=== PATIENT | male | born 1985 | race Caucasian/White ===

== ENCOUNTER 2017-12-26 19:57 | Emergency (ER) | payer OTHER ==
[~2017-12-26] VITALS: Ht 182.9 cm; Wt 95.2 kg
[~2017-12-26 19:57] MED LIST: IBUP800 PO; Naprosyn500 MG PO; Vistaril25 MG PO
== END 2017-12-26 20:51 | disposition home or self-care (01) ==
LOC: ER 19:57
DX: F10.129 Alcohol abuse with intoxication, unspecified (principal); F17.200 Nicotine dependence, unspecified, uncomplicated
CPT/HCPCS: 99285

== ENCOUNTER 2018-02-06 15:19 | Emergency (ER) | payer OTHER ==
[~2018-02-06] VITALS: Ht 182.9 cm; Wt 90.7 kg
[2018-02-06] MEDS ORDERED: CHLO25 PO (15:50)
== END 2018-02-06 16:16 | disposition home or self-care (01) ==
LOC: ER 15:19
DX: F10.10 Alcohol abuse, uncomplicated (principal); I10 Essential (primary) hypertension
CPT/HCPCS: 99284

== ENCOUNTER 2018-07-23 17:24 | Emergency (ER) | payer OTHER ==
[~2018-07-23] VITALS: Ht 182.9 cm; Wt 90.7 kg
[~2018-07-23 17:24] MED LIST changes: +CHLO25 PO
[2018-07-23] MEDS ORDERED: LIDO700A20 TOP (18:03)
[2018-07-23] MEDS ORDERED: TRAM50 PO (18:03)
[2018-07-23] MEDS ORDERED: IBUP800 PO (18:03)
== END 2018-07-23 18:07 | disposition home or self-care (01) ==
LOC: ER 17:24
DX: S46.912A Strain of unspecified muscle, fascia and tendon at shoulder and upper arm level, left arm, initial encounter (principal); X58.XXXA Exposure to other specified factors, initial encounter; F17.200 Nicotine dependence, unspecified, uncomplicated
CPT/HCPCS: 99283

== ENCOUNTER 2018-08-15 00:27 | Emergency (ER) | payer OTHER ==
[~2018-08-15] VITALS: Ht 182.9 cm; Wt 90.7 kg
[~2018-08-15 00:27] MED LIST changes: +LIDO700A20 TOP; +TRAM50 PO
[2018-08-15 03:06] LABS: Anion Gap 10 mmol/L (6-16); Blood Urea Nitrogen 13 mg/dL (8-24); Bun/Creatinine Ratio 15.5 (12.0-20.0); CO2, Blood 25 mmol/L (21-32); Calcium, Blood 8.7 mg/dL (8.5-10.1); Chloride, Blood 105 mmol/L (98-108); Creatinine, Blood 0.84 mg/dL (0.60-1.20); Glomerular Filtration Rate >60 (60-); Glucose, Blood 108 mg/dL (70-99); Potassium, Blood 3.8 mmol/L (3.5-5.5); Sodium, Blood 140 mmol/L (136-145)
[2018-08-15] MEDS ORDERED: AMOCLA400S PO (04:09)
[2018-08-16] MEDS ORDERED: Norco 5-325 Ta1 EACH PO (17:12)
[2018-08-16] MEDS ORDERED: AMOCLA400S PO (17:14)
== END 2018-08-15 04:54 | disposition home or self-care (01) ==
LOC: ER 00:27
PROVIDERS: Emergency Medicine
DX: J02.9 Acute pharyngitis, unspecified (principal); J36 Peritonsillar abscess; F17.210 Nicotine dependence, cigarettes, uncomplicated
CPT/HCPCS: 70491; 80048; 96365-59; 96375-59; 99284-25; A9270-GY; J0295; J1100; J1170; J2405; J7120; Q9967

== ENCOUNTER 2018-08-16 16:19 | Inpatient (IN) | payer OTHER ==
[~2018-08-16] VITALS: Ht 182.9 cm; Wt 89.7 kg
[~2018-08-16 16:19] MED LIST changes: +AMOCLA400S PO
[2018-08-16 17:00] LABS: BASOPHILS ABSOLUTE AUTO 0.02 K/mm3 (0.00-0.23); BASOPHILS PERCENT AUTO 0 % (0-2); EOSINOPHILS ABSOLUTE AUTO 0.03 K/mm3 (0.00-0.68); EOSINOPHILS PERCENT AUTO 0 % (0-6); Hematocrit 45.2 % (37.0-53.0); Hemoglobin 15.4 g/dL (13.5-17.5); IMMATURE GRAN ABSOLUTE AUTO 0.03 K/mm3 (0.00-0.10); IMMATURE GRAN PERCENT AUTO 0 % (0-1); LYMPHOCYTES ABSOLUTE AUTO 2.48 K/mm3 (0.84-5.20); LYMPHOCYTES PERCENT AUTO 19 % (21-46); MONOCYTES ABSOLUTE AUTO 0.78 K/mm3 (0.16-1.47); MONOCYTES PERCENT AUTO 6 % (4-13); Mean Corpuscular HGB 31.1 pg (26.0-34.0); Mean Corpuscular HGB Conc 34.1 g/dL (31.5-36.5); Mean Corpuscular Volume 91 fL (80-100); NEUTROPHILS ABSOLUTE AUTO 9.84 K/mm3 (1.96-9.15); NEUTROPHILS PERCENT AUTO 75 % (41-73); Platelet Count 305 K/mm3 (150-400); RDW Coefficient Variation 12.1 % (11.7-14.2); RDW Standard Deviation 40.6 fL (35.1-46.3); Red Blood Cell Count 4.95 M/mm3 (4.30-5.90); White Blood Cell Count 13.18 K/mm3 (4.00-11.30)
[2018-08-16] MEDS ORDERED: Norco 5-325 Ta1 EACH PO (17:12)
[2018-08-16] MEDS ORDERED: AMOCLA400S PO (17:14)
[2018-08-16 17:23] LABS: Alanine Aminotransfer (ALT/SGP 31 U/L (12-78); Albumin, Blood 4.2 g/dL (3.4-5.0); Albumin/Globulin Ratio 1.2 (0.8-1.8); Alk Phos 61 U/L (50-136); Anion Gap 5 mmol/L (6-16); Aspartate Aminotrans (AST/SGOT 17 U/L (12-37); Bilirubin, Total 0.8 mg/dL (0.1-1.0); Blood Urea Nitrogen 14 mg/dL (8-24); Bun/Creatinine Ratio 16.3 (12.0-20.0); CO2, Blood 29 mmol/L (21-32); Calcium, Blood 9.3 mg/dL (8.5-10.1); Chloride, Blood 104 mmol/L (98-108); Creatinine, Blood 0.86 mg/dL (0.60-1.20); Globulin, Blood 3.5 g/dL (2.2-4.0); Glomerular Filtration Rate >60 (60-); Glucose, Blood 97 mg/dL (70-99); Potassium, Blood 3.7 mmol/L (3.5-5.5); Sodium, Blood 138 mmol/L (136-145); Total Protein, Blood 7.7 g/dL (6.4-8.2)
--- NOTE | 2018-08-16 18:58 | NUR ---
INITIAL ADMIT NOTE PT ARRIVED TO ICU 1837 VIA STRETCHER, RECIEVED REPORT FROM CAMILLA IN ER. PT IS ALERT AND ORIENTED X 4, FOLLOWING COMMANDS, WITH MUFFLED SPEECH. PT IS IN NO RESPIRATORY DISTRESS AT THIS TIME, AND REPORTS NO TROUBLE WITH BREATHING. VITAL SIGNS NOTED, FREQUENT SPITTING OF CLEAR SECRETIONS THAT ARE "PAINFUL TO SWALLOW". PHARYNX IS RED AND SWOLLEN.
--- NOTE | 2018-08-16 19:42 | NUR ---
CALLED HOSPITALIST: TO VERIFY DECADRON IV ORDERS. NEW ORDERS TO DISCONTINUE ALL CURRENT DECADRON IV ORDERS AND REORDER DECADRON 10mg IVP Q12 HOURS NEXT DOSE TO BE TOMORROW AM.
--- NOTE | 2018-08-16 22:03 | NUR ---
START OF SHIFT: BEDSIDE REPORT FROM DENISE ALMAGUER AND KAMILA RN. PT VSS. APPEARED SOMEWHAT TIRED AT THE TIME. PT ASSESSMENT WITH PT C/O THROAT PAIN. PT GIVEN FENTANYL PER DR. SANDERS AND HAS JUST REPORTED SOME RELIEF FROM HIS THROAT PAIN AND IS NOW ACTUALLY ABLE TO SWALLOW A BIT. PT REPORT HIS THROAT PAIN DOWN TO 7/10. PT GIVEN SECOND DOSE OF FENTANYL. WILL CONTINUE TO MONITOR.
[2018-08-16 22:26] LABS: Adenovirus Not Detected (NOT DETECT); Bordetella pertussis Not Detected (NOT DETECT); Chlamydophila pneumoniae Not Detected (NOT DETECT); Coronavirus 229E Not Detected (NOT DETECT); Coronavirus HKU1 Not Detected (NOT DETECT); Coronavirus NL63 Not Detected (NOT DETECT); Coronavirus OC43 Not Detected (NOT DETECT); Human Metapneumovirus Not Detected (NOT DETECT); Human Rhinovirus/Enterovirus Not Detected (NOT DETECT); Influenza A Not Detected (NOT DETECT); Influenza A/2009-H1 Not Detected (NOT DETECT); Influenza A/H1 Not Detected (NOT DETECT); Influenza A/H3 Not Detected (NOT DETECT); Influenza B Not Detected (NOT DETECT); Mycoplasma pneumoniae Not Detected (NOT DETECT); Parainfluenza Virus 1 Not Detected (NOT DETECT); Parainfluenza Virus 2 Not Detected (NOT DETECT); Parainfluenza Virus 3 Not Detected (NOT DETECT); Parainfluenza Virus 4 Not Detected (NOT DETECT); Respiratory Syncytial Virus Not Detected (NOT DETECT)
--- NOTE | 2018-08-16 22:26 | NUR ---
HOSPITALIST NOTIFIED: PT STATED THAT HIS THROAT IS FEELING BETTER AND ABLE TO SWALLOW-REQUESTED TO HAVE SOMETHING COLD TO DRINK. HOSPITALIST GAVE NEW ORDER: TRY ICE WATER TO BEGIN WITH THEN IF TOLERATED AND NO ASPIRATION THEN START PT ON CLEAR LIQUID DIET.
--- NOTE | 2018-08-16 23:29 | NUR ---
PT TOLERATING ICE WATER WELL. REQUESTS APPLE JUICE. CHANGED DIET TO CLEAR LIQUIDS
--- NOTE | 2018-08-17 00:29 | NUR ---
PAIN: PT REPORTS NOW PAIN ONLY 1/10 WHEN NOT SWALLOWING. 6/10 WHEN SWALLOWING. PT REQUESTED AND GIVEN MORE APPLE JUICE.
[2018-08-17 03:57] LABS: BASOPHILS ABSOLUTE AUTO 0.01 K/mm3 (0.00-0.23); BASOPHILS PERCENT AUTO 0 % (0-2); EOSINOPHILS ABSOLUTE AUTO 0.01 K/mm3 (0.00-0.68); EOSINOPHILS PERCENT AUTO 0 % (0-6); Hematocrit 43.5 % (37.0-53.0); Hemoglobin 14.7 g/dL (13.5-17.5); IMMATURE GRAN ABSOLUTE AUTO 0.03 K/mm3 (0.00-0.10); IMMATURE GRAN PERCENT AUTO 0 % (0-1); LYMPHOCYTES ABSOLUTE AUTO 1.01 K/mm3 (0.84-5.20); LYMPHOCYTES PERCENT AUTO 8 % (21-46); MONOCYTES ABSOLUTE AUTO 0.43 K/mm3 (0.16-1.47); MONOCYTES PERCENT AUTO 3 % (4-13); Mean Corpuscular HGB 30.7 pg (26.0-34.0); Mean Corpuscular HGB Conc 33.8 g/dL (31.5-36.5); Mean Corpuscular Volume 91 fL (80-100); NEUTROPHILS ABSOLUTE AUTO 11.08 K/mm3 (1.96-9.15); NEUTROPHILS PERCENT AUTO 88 % (41-73); Platelet Count 295 K/mm3 (150-400); RDW Standard Deviation 40.3 fL (35.1-46.3); Red Blood Cell Count 4.79 M/mm3 (4.30-5.90); White Blood Cell Count 12.57 K/mm3 (4.00-11.30)
[2018-08-17 04:12] LABS: Anion Gap 8 mmol/L (6-16); Blood Urea Nitrogen 11 mg/dL (8-24); Bun/Creatinine Ratio 14.4 (12.0-20.0); CO2, Blood 27 mmol/L (21-32); Calcium, Blood 9.1 mg/dL (8.5-10.1); Chloride, Blood 105 mmol/L (98-108); Creatinine, Blood 0.76 mg/dL (0.60-1.20); Glomerular Filtration Rate >60 (60-); Glucose, Blood 136 mg/dL (70-99); Potassium, Blood 4.4 mmol/L (3.5-5.5); Sodium, Blood 140 mmol/L (136-145)
--- NOTE | 2018-08-17 05:34 | NUR ---
PT RESTING WELL SINCE LAST NOTE. VSS. AWAKENING EASILY TO RN AND KNOCKDOWN WORKER AT BEDSIDE.
--- NOTE | 2018-08-17 06:46 | NUR ---
PT AWAKE. STATES THROAT FEELS A LOT BETTER. PT UP TO TOILET IN ROOM. TOLERATING WELL.
--- NOTE | 2018-08-17 09:53 | NUR ---
ASSUMED CARE OF PT @0700. PT SLEEPING IN BED. PT AWOKE @0930. PT ALERT AND ORIENTED. PT ABLE TO REPOSITION BY HIMSELF. LUNG SOUNDS CLEAR. HEART SOUNDS REGULAR IN NSR. PERIPHERAL PULSES SRONG. THROAT PAINLESS WHEN PALPATED. PT DENIES PAIN WHEN SWOLLOWING. ORAL MUCOSA MOIST, ESPHAGOUS HAS RED DISCOLORATION. R TONSIL ENLARGED. WILL CONTINUE TO MONITRO. BED IN LOWEST POSITION, CALL LIGHT IN REACH.
[2018-08-17] MEDS ORDERED: Augmentin 875-1 EACH PO (14:49)
[2018-08-17] MEDS ORDERED: DEXA4 PO (14:54)
--- NOTE | 2018-08-17 16:38 | NUR ---
DISCHARGE SUMMARY NO ACUTE CHANGES NOTED THOUGHOUT THE SHIFT. SEEN BY PMD AND ENT. NEW DOCTORS ORDERS RECEIVED.PT OK'ED FOR DISCHARGE HOME AFTER ADMINISTRATION OF EVNEING DOSE OF ABX AND IV STEROID. RX CALLED TO [facility] PER PT REQUEST. NO S/SX OF ACUTE DISTRESS AT HIS TIME. BED IN LOWEST POSTION. CALL LIGHT IN REACH. WILL MONITOR UNTIL DISCHARGE.
== END 2018-08-17 18:12 | disposition home or self-care (01) | DRG 153 ==
LOC: ER 16:19 → ICUW 17:27 → ERHOLD 17:27 → ICUW 18:31
PROVIDERS: Emergency Medicine; Nurse Practitioner Acute Care; ADMIT Internal Medicine
PROC: 0CJS8ZZ Inspection of Larynx, Via Natural or Artificial Opening Endoscopic (ICD-10-PCS; principal; 2018-08-16)
DX: J36 Peritonsillar abscess (principal); F17.210 Nicotine dependence, cigarettes, uncomplicated
CPT/HCPCS: 36415; 70491; 71045; 80048; 80053; 85025; 87081; 87430; 87486; 87581; 87633; 87798; 96365; 96365-59; 96375; 96375-59; 99284-25; 99285-25; A9270-GY; J0295; J1100; J1170; J2405; J3010; J7030; J7120; Q9967

== ENCOUNTER 2018-11-07 14:10 | Emergency (ER) | payer OTHER ==
[~2018-11-07] VITALS: Ht 182.9 cm; Wt 90.7 kg
[~2018-11-07 14:10] MED LIST changes: +Augmentin 875-1 EACH PO; +DEXA4 PO; +Norco 5-325 Ta1 EACH PO
[2018-11-07] MEDS ORDERED: CEPH500 PO (15:56)
== END 2018-11-07 16:00 | disposition home or self-care (01) ==
LOC: ER 14:10
DX: L03.116 Cellulitis of left lower limb (principal); F17.210 Nicotine dependence, cigarettes, uncomplicated
CPT/HCPCS: 99283

== ENCOUNTER 2018-11-08 21:38 | Inpatient (IN) | payer OTHER ==
[~2018-11-08] VITALS: Ht 182.9 cm; Wt 93.4 kg
[~2018-11-08 21:38] MED LIST changes: +CEPH500 PO
[2018-11-09 00:42] LABS: BODY FLUID RBC 0.025 (0-0); RBC Count, Synovial Fluid 25000 /mm3 (0-0); WBC Count, Synovial Fluid 98 /mm3 (0-180)
[2018-11-09 01:04] LABS: Eos, Synovial Fluid 4 % (0-2); Lymphs, Synovial Fluid 71 % (0-15); Monocytes/Macrophages, Synovia 9 % (0-65); Neutrophils, Synovial Fluid 16 % (0-24)
[2018-11-09 01:05] LABS: Appearance, Synovial Fluid Cloudy (Clear); Color, Synovial Fluid Red (None-P Yel)
[2018-11-09 02:08] LABS: BASOPHILS ABSOLUTE AUTO 0.05 K/mm3 (0.00-0.23); BASOPHILS PERCENT AUTO 1 % (0-2); EOSINOPHILS ABSOLUTE AUTO 0.07 K/mm3 (0.00-0.68); EOSINOPHILS PERCENT AUTO 1 % (0-6); Hematocrit 43.9 % (37.0-53.0); Hemoglobin 14.8 g/dL (13.5-17.5); IMMATURE GRAN ABSOLUTE AUTO 0.02 K/mm3 (0.00-0.10); IMMATURE GRAN PERCENT AUTO 0 % (0-1); LYMPHOCYTES ABSOLUTE AUTO 2.43 K/mm3 (0.84-5.20); LYMPHOCYTES PERCENT AUTO 22 % (21-46); MONOCYTES PERCENT AUTO 6 % (4-13); Mean Corpuscular HGB 31.4 pg (26.0-34.0); Mean Corpuscular HGB Conc 33.7 g/dL (31.5-36.5); Mean Corpuscular Volume 93 fL (80-100); Mean Platelet Volume 9.6 fL (9.1-12.4); NEUTROPHILS ABSOLUTE AUTO 7.84 K/mm3 (1.96-9.15); NEUTROPHILS PERCENT AUTO 71 % (41-73); Platelet Count 358 K/mm3 (150-400); RDW Coefficient Variation 12.3 % (11.7-14.2); RDW Standard Deviation 42.6 fL (35.1-46.3); Red Blood Cell Count 4.71 M/mm3 (4.30-5.90); White Blood Cell Count 11.11 K/mm3 (4.00-11.30)
[2018-11-09 02:24] LABS: Alanine Aminotransfer (ALT/SGP 24 U/L (12-78); Albumin, Blood 3.9 g/dL (3.4-5.0); Albumin/Globulin Ratio 1.1 (0.8-1.8); Alk Phos 68 U/L (50-136); Anion Gap 9 mmol/L (6-16); Aspartate Aminotrans (AST/SGOT 11 U/L (12-37); Bilirubin, Total 0.3 mg/dL (0.1-1.0); Blood Urea Nitrogen 11 mg/dL (8-24); CO2, Blood 25 mmol/L (21-32); Chloride, Blood 108 mmol/L (98-108); Creatinine, Blood 0.92 mg/dL (0.60-1.20); Globulin, Blood 3.7 g/dL (2.2-4.0); Glomerular Filtration Rate >60 (60-); Glucose, Blood 94 mg/dL (70-99); Potassium, Blood 4.1 mmol/L (3.5-5.5); Sodium, Blood 142 mmol/L (136-145); Total Protein, Blood 7.6 g/dL (6.4-8.2)
--- NOTE | 2018-11-09 03:34 | NUR ---
PATIENT IS A NEW ADMIT FROM THE ED. AXOX 3 AND SBA TRANSFER FROM [facility] TO BED. PIV INTACT. VANCO INFUSING IN ADMIT. LEFT KNEE PAIN. PAIN MED GIVEN IN ED. PATIENT ORIENTED TO ROOM AND CALL LIGHT SYSTEM. CALL LIGHT IN REACH. WILL CONTINUE TO MONITOR.
--- NOTE | 2018-11-09 04:53 | NUR ---
PATIENT ON HIS PHONE SINCE ADMIT. IV ABX FINISHED INFUSING. CALL LIGHT IN REACH. WILL CONTINUE TO MONITOR.
--- NOTE | 2018-11-09 16:43 | NUR ---
ALERT. ORIENTED. UNLABORED RESPIRATIONS. COOPERATIVE. PLEASANT. MEDICATED FOR PAIN WITH GOOD RESULTS. NOT MUCH CHANGES IN LEFT KNEE SWELLING. ITCHING SEEMS TO BE BETTER AFTER CLARITIN. ABLE TO MAKE NEEDS KNOWN. WCTM.
[2018-11-10 04:46] LABS: BASOPHILS ABSOLUTE AUTO 0.04 K/mm3 (0.00-0.23); BASOPHILS PERCENT AUTO 0 % (0-2); EOSINOPHILS ABSOLUTE AUTO 0.09 K/mm3 (0.00-0.68); EOSINOPHILS PERCENT AUTO 1 % (0-6); Hematocrit 38.5 % (37.0-53.0); Hemoglobin 13.1 g/dL (13.5-17.5); IMMATURE GRAN ABSOLUTE AUTO 0.03 K/mm3 (0.00-0.10); IMMATURE GRAN PERCENT AUTO 0 % (0-1); LYMPHOCYTES ABSOLUTE AUTO 2.49 K/mm3 (0.84-5.20); LYMPHOCYTES PERCENT AUTO 26 % (21-46); MONOCYTES ABSOLUTE AUTO 0.63 K/mm3 (0.16-1.47); MONOCYTES PERCENT AUTO 7 % (4-13); Mean Corpuscular HGB 30.9 pg (26.0-34.0); Mean Corpuscular Volume 91 fL (80-100); Mean Platelet Volume 9.2 fL (9.1-12.4); NEUTROPHILS ABSOLUTE AUTO 6.35 K/mm3 (1.96-9.15); NEUTROPHILS PERCENT AUTO 66 % (41-73); Platelet Count 308 K/mm3 (150-400); RDW Coefficient Variation 12.2 % (11.7-14.2); RDW Standard Deviation 40.6 fL (35.1-46.3); Red Blood Cell Count 4.24 M/mm3 (4.30-5.90); White Blood Cell Count 9.63 K/mm3 (4.00-11.30)
--- NOTE | 2018-11-10 04:52 | NUR ---
SHIFT SUMMARY: PT IS ALERT AND ORIENTED. PT IS CALM AND COOPERATIVE WITH CARE. PT CALLS APPROPRIATELY. PT IS INDEPENDENT, OUTSIDE TO SMOKE ON SEVERAL OCCASIONS. PT REPORTS NAUSEA ON ONE OCCASION AFTER GOING OUTSIDE, OFFERED TO CALL THE DR. ELVIN BLAKE, PT SAID HE WOULD WAIT TO SEE IF IT WOULD PASS, SYMPTOMS IMPROVED WITHOUT MEDICATION. PT REPORTS FEELING CONSTIPATION, GAVE SCHEDULED COLACE AND PRN MILK OF MAGNESIA, NO BM YET. PT DENIES SOB, ON ROOM AIR. NO ACUTE CHANGES OR COMPLICATIONS THIS SHIFT. WILL CONTINUE TO MONITOR.
[2018-11-10 10:34] LABS: Vancomycin, Trough 9.5 ug/mL (5.0-10.0)
[2018-11-10] MEDS ORDERED: DOXY100 PO (15:05)
--- NOTE | 2018-11-10 17:18 | NUR ---
PT DISCHARGED 1550 WITH DC ORDERS, IV DC'D, RX TO [facility]. SENT WITH KNEE IMMOBILIZER PER PT REQUEST OF KNEE WEAKNESS. PT AMBULATORY AND SHOWERED BEFORE DC.SENT HOME WITH DANNY.
== END 2018-11-10 16:15 | disposition home or self-care (01) | DRG 603 ==
LOC: ER 21:38 → MEDS 11-09 02:45 → ENPENDDIS 11-10 14:44 → MEDS 11-10 16:15
PROVIDERS: Emergency Medicine; Hospitalist; ADMIT Internal Medicine
DX: L03.116 Cellulitis of left lower limb (principal); F17.210 Nicotine dependence, cigarettes, uncomplicated
CPT/HCPCS: 20610; 36415; 73701; 80053; 80202; 83605; 85025; 85651; 86140; 87040; 87070; 87075; 87205; 89051; 96365; 96367; 96375; 99283; 99284-25; J0690; J1650; J2405; J2543; J3010; J3370; J7030; J7050; Q9967

== ENCOUNTER 2018-12-30 08:52 | Emergency (ER) | payer OTHER ==
[~2018-12-30] VITALS: Ht 182.9 cm; Wt 90.7 kg
[~2018-12-30 08:52] MED LIST changes: +DOXY100 PO
[2018-12-30 10:08] LABS: BASOPHILS ABSOLUTE AUTO 0.05 K/mm3 (0.00-0.23); BASOPHILS PERCENT AUTO 1 % (0-2); EOSINOPHILS ABSOLUTE AUTO 0.04 K/mm3 (0.00-0.68); EOSINOPHILS PERCENT AUTO 1 % (0-6); Hematocrit 44.2 % (37.0-53.0); Hemoglobin 15.1 g/dL (13.5-17.5); IMMATURE GRAN ABSOLUTE AUTO 0.02 K/mm3 (0.00-0.10); IMMATURE GRAN PERCENT AUTO 0 % (0-1); LYMPHOCYTES ABSOLUTE AUTO 1.61 K/mm3 (0.84-5.20); LYMPHOCYTES PERCENT AUTO 23 % (21-46); MONOCYTES ABSOLUTE AUTO 0.34 K/mm3 (0.16-1.47); MONOCYTES PERCENT AUTO 5 % (4-13); Mean Corpuscular HGB 31.3 pg (26.0-34.0); Mean Corpuscular HGB Conc 34.2 g/dL (31.5-36.5); Mean Corpuscular Volume 92 fL (80-100); Mean Platelet Volume 9.1 fL (9.1-12.4); NEUTROPHILS ABSOLUTE AUTO 5.03 K/mm3 (1.96-9.15); NEUTROPHILS PERCENT AUTO 71 % (41-73); Platelet Count 337 K/mm3 (150-400); RDW Coefficient Variation 12.3 % (11.7-14.2); RDW Standard Deviation 41.1 fL (35.1-46.3); Red Blood Cell Count 4.83 M/mm3 (4.30-5.90); White Blood Cell Count 7.09 K/mm3 (4.00-11.30)
[2018-12-30 10:29] LABS: Alanine Aminotransfer (ALT/SGP 23 U/L (12-78); Albumin, Blood 3.9 g/dL (3.4-5.0); Albumin/Globulin Ratio 1.3 (0.8-1.8); Alk Phos 56 U/L (50-136); Anion Gap 2 mmol/L (6-16); Aspartate Aminotrans (AST/SGOT 18 U/L (12-37); Bilirubin, Total 0.4 mg/dL (0.1-1.0); Blood Urea Nitrogen 11 mg/dL (8-24); Bun/Creatinine Ratio 13.6 (12.0-20.0); CO2, Blood 26 mmol/L (21-32); Calcium, Blood 8.9 mg/dL (8.5-10.1); Chloride, Blood 110 mmol/L (98-108); Creatinine, Blood 0.81 mg/dL (0.60-1.20); Glomerular Filtration Rate >60 (60-); Glucose, Blood 106 mg/dL (70-99); Sodium, Blood 138 mmol/L (136-145); Total Protein, Blood 6.9 g/dL (6.4-8.2)
[2018-12-30] MEDS ORDERED: ONDA4ODT MM (11:54)
== END 2018-12-30 12:18 | disposition home or self-care (01) ==
LOC: ER 08:52
PROVIDERS: Emergency Medicine
DX: K52.9 Noninfective gastroenteritis and colitis, unspecified (principal); F17.210 Nicotine dependence, cigarettes, uncomplicated
CPT/HCPCS: 36415; 80053; 83690; 85025; 99283

== ENCOUNTER 2019-04-17 18:41 | Emergency (ER) | payer OTHER ==
[~2019-04-17] VITALS: Ht 182.9 cm; Wt 90.7 kg
[~2019-04-17 18:41] MED LIST changes: +ONDA4ODT MM
[2019-04-17] MEDS ORDERED: Naprosyn500 MG PO (20:31)
[2019-04-17] MEDS ORDERED: HYDR1TAB94 PO (20:31)
== END 2019-04-17 20:45 | disposition home or self-care (01) ==
LOC: ER 18:41
DX: M25.511 Pain in right shoulder (principal); F17.210 Nicotine dependence, cigarettes, uncomplicated
CPT/HCPCS: 99283; A9270

== ENCOUNTER → 2019-06-08 | Outpatient (CLI) | payer OTHER ==
[~2019-06-08] MED LIST changes: +HYDR1TAB94 PO
[2019-06-13 01:08] LABS: CHLAMYDIA TRACHOMATIS, NAA Negative (Negative); NEISSERIA GONORRHOEAE, NAA Negative (Negative)
== END | disposition home or self-care (01) ==
LOC: LAB 13:59 → LAB SHORT 13:59
PROVIDERS: Nurse Practitioner Family
DX: Z11.3 Encounter for screening for infections with a predominantly sexual mode of transmission (principal); N39.0 Urinary tract infection, site not specified
CPT/HCPCS: 87086; 87491; 87591

== ENCOUNTER → 2020-02-10 | Outpatient (CLI) | payer OTHER | LOC: LAB 14:10 → LAB SHORT 14:10 | DX: J06.9 Acute upper respiratory infection, unspecified (principal); Z20.828 Contact with and (suspected) exposure to other viral communicable diseases | CPT/HCPCS: U0003 ==

== ENCOUNTER 2022-01-17 22:57 | Emergency (ER) | payer OTHER ==
[~2022-01-17] VITALS: Ht 182.9 cm; Wt 93.0 kg
[2022-01-17 23:27] LABS: BASOPHILS ABSOLUTE AUTO 0.02 K/mm3 (0.00-0.23); BASOPHILS PERCENT AUTO 0 % (0-2); EOSINOPHILS ABSOLUTE AUTO 0.07 K/mm3 (0.00-0.68); EOSINOPHILS PERCENT AUTO 1 % (0-6); Hematocrit 39.9 % (37.0-53.0); Hemoglobin 14.1 g/dL (13.5-17.5); IMMATURE GRAN ABSOLUTE AUTO 0.02 K/mm3 (0.00-0.10); IMMATURE GRAN PERCENT AUTO 0 % (0-1); LYMPHOCYTES ABSOLUTE AUTO 2.45 K/mm3 (0.84-5.20); LYMPHOCYTES PERCENT AUTO 32 % (21-46); MONOCYTES ABSOLUTE AUTO 0.49 K/mm3 (0.16-1.47); MONOCYTES PERCENT AUTO 6 % (4-13); Mean Corpuscular HGB 30.6 pg (26.0-34.0); Mean Corpuscular HGB Conc 35.3 g/dL (31.5-36.5); Mean Corpuscular Volume 87 fL (80-100); Mean Platelet Volume 8.8 fL (9.1-12.4); NEUTROPHILS ABSOLUTE AUTO 4.72 K/mm3 (1.96-9.15); NEUTROPHILS PERCENT AUTO 61 % (41-73); Platelet Count 336 K/mm3 (150-400); RDW Coefficient Variation 11.9 % (11.7-14.2); RDW Standard Deviation 37.8 fL (35.1-46.3); Red Blood Cell Count 4.61 M/mm3 (4.30-5.90); White Blood Cell Count 7.77 K/mm3 (4.00-11.30)
[2022-01-17 23:42] LABS: Albumin, Blood 3.8 g/dL (3.4-5.0); Albumin/Globulin Ratio 1.3 (0.8-1.8); Bilirubin, Total 0.3 mg/dL (0.1-1.0); Bun/Creatinine Ratio 11.9 (12.0-20.0); Calcium, Blood 8.9 mg/dL (8.5-10.1); Creatinine, Blood 0.84 mg/dL (0.60-1.20); Potassium, Blood 3.5 mmol/L (3.5-5.5); Total Protein, Blood 6.8 g/dL (6.4-8.2)
== END 2022-01-18 00:25 | disposition home or self-care (01) ==
LOC: ER 22:57
PROVIDERS: Emergency Medicine
DX: R07.9 Chest pain, unspecified (principal); F17.210 Nicotine dependence, cigarettes, uncomplicated
CPT/HCPCS: 36415; 71045; 80053; 84484; 85025; 93005; 93010; 96374; 99285-25; J1885

== ENCOUNTER 2022-10-12 17:30 | Emergency (ER) | payer OTHER ==
[~2022-10-12] VITALS: Ht 182.9 cm; Wt 99.8 kg
[2022-10-12 19:02] LABS: BASOPHILS ABSOLUTE AUTO 0.04 K/mm3 (0.00-0.23); BASOPHILS PERCENT AUTO 0 % (0-2); EOSINOPHILS ABSOLUTE AUTO 0.08 K/mm3 (0.00-0.68); EOSINOPHILS PERCENT AUTO 1 % (0-6); Hemoglobin 16.9 g/dL (13.5-17.5); IMMATURE GRAN ABSOLUTE AUTO 0.03 K/mm3 (0.00-0.10); IMMATURE GRAN PERCENT AUTO 0 % (0-1); LYMPHOCYTES ABSOLUTE AUTO 2.02 K/mm3 (0.84-5.20); LYMPHOCYTES PERCENT AUTO 20 % (21-46); MONOCYTES ABSOLUTE AUTO 0.47 K/mm3 (0.16-1.47); MONOCYTES PERCENT AUTO 5 % (4-13); Mean Corpuscular HGB 31.4 pg (26.0-34.0); Mean Corpuscular HGB Conc 35.2 g/dL (31.5-36.5); Mean Corpuscular Volume 89 fL (80-100); Mean Platelet Volume 8.8 fL (9.1-12.4); NEUTROPHILS ABSOLUTE AUTO 7.63 K/mm3 (1.96-9.15); NEUTROPHILS PERCENT AUTO 74 % (41-73); Platelet Count 335 K/mm3 (150-400); RDW Coefficient Variation 13.6 % (11.7-14.2); RDW Standard Deviation 44.1 fL (35.1-46.3); Red Blood Cell Count 5.39 M/mm3 (4.30-5.90); White Blood Cell Count 10.27 K/mm3 (4.00-11.30)
[2022-10-12 19:20] LABS: Albumin, Blood 3.8 g/dL (3.4-5.0); Albumin/Globulin Ratio 1.2 (0.8-1.8); Bilirubin, Total 0.4 mg/dL (0.1-1.0); Bun/Creatinine Ratio 13.3 (12.0-20.0); Calcium, Blood 8.6 mg/dL (8.5-10.1); Creatinine, Blood 0.98 mg/dL (0.60-1.20); Globulin, Blood 3.3 g/dL (2.2-4.0); Potassium, Blood 4.3 mmol/L (3.5-5.5); Total Protein, Blood 7.1 g/dL (6.4-8.2)
[2022-10-12 20:32] VITALS: BP 165/99
== END 2022-10-12 22:09 | disposition home or self-care (01) ==
LOC: ER 17:30
PROVIDERS: Student in an Organized Health Care Education/Training Program
DX: R07.89 Other chest pain (principal); F17.210 Nicotine dependence, cigarettes, uncomplicated
CPT/HCPCS: 71046; 80053; 84484; 85025; 85379; 93005; 93010; 99284-25